=== PATIENT | female | born 1950 | race Caucasian/White ===

== ENCOUNTER → 2024-04-14 | Outpatient (CLI) | payer MEDICARE, SELFPAY ==
[2024-04-14 08:29] LABS: Basophils # (Auto) 0.1 Thou/mm3 (0.0-0.2); Basophils % (Auto) 1 % (0-2.5); Eosinophils # (Auto) 0.3 Thou/mm3 (0.0-0.5); Eosinophils % (Auto) 4 % (0-10); Hematocrit 38.8 % (36.0-46.0); Hemoglobin 12.1 g/dL (12.0-16.0); Immature Granulocytes % (Auto) 0 % (0-0); Immature Granulocytes Auto 0.03 Thou/mm3 (0.00-0.00); Lymphocytes % (Auto) 27 % (10-50); Mean Corpuscular HGB Conc 31.2 g/dl (31.0-37.0); Mean Corpuscular Hemoglobin 28.4 pg (25.0-35.0); Mean Corpuscular Volume 91 fL (80-100); Monocytes # (Auto) 0.6 Thou/mm3 (0.0-0.8); Monocytes % (Auto) 8 % (0-12); Neutrophils # (Auto) 4.4 Thou/mm3 (1.8-7.7); Neutrophils % (Auto) 60 % (37-80); Nucleated Red Blood Cell % 0 /100 WBC (0); Platelet Count 304 Thou/mm3 (140-440); Red Blood Count 4.26 Miln/mm3 (4.00-5.20); White Blood Count 7.4 Thou/mm3 (3.6-11.0)
[2024-04-14 08:39] LABS: Glucose Estimated Average 140 mg/dL (80-131); Hemoglobin A1C 6.5 % Hgb (4.8-6.0)
[2024-04-14 09:02] LABS: Alanine Aminotransferase 17 U/L (10-49); Albumin, Serum 4.6 gm/dL (3.4-4.8); Albumin/Globulin Ratio 1.8 (1.2-2.2); Alkaline Phosphatase 87 U/L (46-116); Anion Gap 6 (7-16); Aspartate Amino Transferase 19 U/L (0-34); BUN/Creatinine Ratio 18 Ratio (12-20); Bilirubin,Total 0.7 mg/dL (0.3-1.2); Blood Urea Nitrogen 21 mg/dL (9-23); Calcium 9.6 mg/dL (8.3-10.6); Calcium (Corrected) 9.6 mg/dL (8.5-10.1); Carbon Dioxide 24.2 mMol/L (20.0-31.0); Chloride 111 mMol/L (98-107); Creatinine (Component) 1.2 mg/dL (0.6-1.3); Globulin 2.5 gm/dL (2.3-3.5); Glucose 153 mg/dL (74-106); Osmolality,Calculated 287 (275-295); Potassium 5.3 mMol/L (3.4-5.1); Sodium 141 mMol/L (136-145); Thyroid Stimulating Hormone 3.35 uIU/mL (0.55-4.78); Total Protein 7.1 gm/dL (5.7-8.2); eGFR 48 See Note
== END | disposition home or self-care (01) ==
PROVIDERS: PCP Specialist; Referring Provider Specialist; Visit Provider Specialist
DX: E11.9 Type 2 diabetes mellitus without complications (principal); R42 Dizziness and giddiness; R60.9 Edema, unspecified
CPT/HCPCS: 36415; 80053; 83036; 84443; 85025

== ENCOUNTER → 2024-10-06 | Outpatient (CLI) | payer MEDICARE, SELFPAY ==
[2024-10-06 09:20] LABS: Alanine Aminotransferase 20 U/L (10-49); Albumin, Serum 4.7 gm/dL (3.4-4.8); Albumin/Globulin Ratio 1.9 (1.2-2.2); Alkaline Phosphatase 79 U/L (46-116); Anion Gap 7 (7-16); Aspartate Amino Transferase 19 U/L (0-34); BUN/Creatinine Ratio 17 Ratio (12-20); Bilirubin,Total 1.1 mg/dL (0.3-1.2); Blood Urea Nitrogen 17 mg/dL (9-23); Calcium 9.5 mg/dL (8.3-10.6); Calcium (Corrected) 9.5 mg/dL (8.5-10.1); Carbon Dioxide 25.8 mMol/L (20.0-31.0); Chloride 105 mMol/L (98-107); Globulin 2.5 gm/dL (2.3-3.5); Glucose 158 mg/dL (74-106); Osmolality,Calculated 280 (275-295); Potassium 4.9 mMol/L (3.4-5.1); Sodium 138 mMol/L (136-145); Total Protein 7.2 gm/dL (5.7-8.2); eGFR 60 See Note
[2024-10-06 09:30] LABS: Glucose Estimated Average 146 mg/dL (80-131); Hemoglobin A1C 6.7 % Hgb (4.8-6.0)
== END | disposition home or self-care (01) ==
LOC: COPL 07:57
PROVIDERS: PCP Specialist; Referring Provider Specialist; Visit Provider Specialist
DX: E11.9 Type 2 diabetes mellitus without complications (principal); R42 Dizziness and giddiness; R60.9 Edema, unspecified
CPT/HCPCS: 36415; 80053; 83036

== ENCOUNTER 2024-11-11 18:45 | Inpatient (IN) | payer MEDICARE, SELFPAY ==
[2024-11-11] VITALS (9 sets, daily range): BP systolic 120–200; BP diastolic 70–108; PULSE 78–93; RESP 17–96; TEMP 36.8–36.9; O2SAT 95–96; BMI 29.8
--- NOTE | 2024-11-11 19:02 | EKG_ITS ---
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
--- NOTE | 2024-11-11 19:33 | XR_ITS ---
Examination: CTA carotids with intravenous contrast CTA brain, head with intravenous contrast. 2-D sagittal, coronal reconstructions. 3-D reconstructions. Exam date and time: November 11, 2024, 194 hours INDICATIONS: Stroke alert, onset focal neurologic deficit beginning 1400 hours today CTDI: vol (mGy) 34.8 DLP: (mGycm) 484 Technique: Multiple CTA axial brain, head carotid images post intravenous contrast injection 75 cc, [id number]. 2-D sagittal, coronal reconstructions. 3-D reconstructions, 3-D post processing including vascular maximum intensity projection images. Low dose protocols were performed. One or more of the following dose reduction techniques were used; automated exposure control, adjustment of the mA and/or KV according to patient size, use of iterative reconstruction technique. Findings: 40-60% stenosis left carotid bifurcation origin left internal carotid artery 80% stenosis right carotid bifurcation origin right internal carotid artery Mildly dominant left vertebral artery with no critical stenoses No cerebral large vessel arterial occlusions, aneurysm clip anterior to the basilar artery IMPRESSION: 40-60% stenosis left carotid bifurcation origin left internal carotid artery 80% stenosis right carotid bifurcation origin right internal carotid artery No cerebral large vessel arterial occlusions or thrombus
--- NOTE | 2024-11-11 19:33 | XR_ITS ---
Examination: CT brain head without contrast. 2-D sagittal coronal reconstructions Date and time of exam:November 11, 2024 1940 hours, comparison October 10, 2023 INDICATIONS: Stroke alert, onset facial numbness and headache dizziness beginning 1400 hours today CTDI: vol (mGy):48.8 DLP: (mGycm):967 Technique: Multiple CT axial sections of the brain have been obtained, 5 mm slice thickness. Contrast has not been administered. 2-D sagittal, coronal reconstructions have been obtained Low dose protocols were performed. One or more of the following dose reduction techniques were used; automated exposure control, adjustment of the mA and/or KV according to patient size, use of iterative reconstruction technique. Findings: No significant ventricular enlargement. Intra-axial or extra-axial hemorrhage density is not seen. No mass effect or midline shift Basal cisterns are not remarkable. Fourth ventricle is midline. Right temporal bone craniotomy defect with aneurysm clip in the anterior right parasellar region, and surgical clips in the temporal fossa is bilaterally Impression: Negative for acute hemorrhage, mass effect or midline shift
--- NOTE | 2024-11-11 19:33 | EDRME_ITS ---
Rapid Medical Screening Exam [facility] Arrival date/time: 11/11/24 18:45 73F with history of DM, HTN, hypothyroidism, and cerebral aneurysm s/p neurosurgery presents to ED with dizziness, blurry vision and facial numbness starting around 1400 today. Patient takes meclizine for chronic dizziness, but has never had the blurry vision and facial numbness. Currently, patient states she only has the blurry vision in R eye. Chief Complaint: Dizziness Vital signs: Vital Signs Temperature 98.5 F 11/11/24 19:04 Pulse Rate 92 11/11/24 19:04 Respiratory Rate 18 11/11/24 19:04 Blood Pressure 153/70 H 11/11/24 19:04 Pulse Oximetry (%) 95 11/11/24 19:04 Oxygen Delivery Method Room Air 11/11/24 19:04
--- NOTE | 2024-11-11 19:39 | PC.NURSE ---
Case Consult 11/11/2024 19:39:24 [facility] Case # [id number] has been created
[2024-11-11 20:00] LABS: Basophils # (Auto) 0.1 Thou/mm3 (0.0-0.2); Basophils % (Auto) 1 % (0-2.5); Eosinophils # (Auto) 0.4 Thou/mm3 (0.0-0.5); Eosinophils % (Auto) 4 % (0-10); Hematocrit 38.2 % (36.0-46.0); Hemoglobin 12.9 g/dL (12.0-16.0); Immature Granulocytes % (Auto) 0 % (0-0); Immature Granulocytes Auto 0.02 Thou/mm3 (0.00-0.00); Lymphocytes % (Auto) 31 % (10-50); Mean Corpuscular HGB Conc 33.8 g/dl (31.0-37.0); Mean Corpuscular Hemoglobin 29.6 pg (25.0-35.0); Mean Corpuscular Volume 88 fL (80-100); Monocytes # (Auto) 0.9 Thou/mm3 (0.0-0.8); Monocytes % (Auto) 10 % (0-12); Neutrophils # (Auto) 5.2 Thou/mm3 (1.8-7.7); Neutrophils % (Auto) 55 % (37-80); Nucleated Red Blood Cell % 0 /100 WBC (0); Platelet Count 271 Thou/mm3 (140-440); RDW Standard Deviation 42.6 fL (36.4-46.3); Red Blood Count 4.36 Miln/mm3 (4.00-5.20); White Blood Count 9.5 Thou/mm3 (3.6-11.0)
[2024-11-11 20:15] LABS: Partial Thromboplastin Time 24.8 Seconds (22.0-36.0); Prothrombin Time 10.5 Seconds (9.0-12.2)
[2024-11-11 20:29] LABS: Alanine Aminotransferase 20 U/L (10-49); Albumin, Serum 4.7 gm/dL (3.4-4.8); Albumin/Globulin Ratio 2.1 (1.2-2.2); Alkaline Phosphatase 98 U/L (46-116); Anion Gap 11 (7-16); Aspartate Amino Transferase 22 U/L (0-34); BUN/Creatinine Ratio 17 Ratio (12-20); Bilirubin,Total 1.1 mg/dL (0.3-1.2); Blood Urea Nitrogen 19 mg/dL (9-23); Calcium 9.9 mg/dL (8.3-10.6); Calcium (Corrected) 9.9 mg/dL (8.5-10.1); Carbon Dioxide 24.2 mMol/L (20.0-31.0); Chloride 104 mMol/L (98-107); Creatinine (Component) 1.1 mg/dL (0.6-1.3); Estimated Creatinine Clearance 50.5 mL/min (>60); Globulin 2.2 gm/dL (2.3-3.5); Glucose 135 mg/dL (74-106); Osmolality,Calculated 281 (275-295); Potassium 4.1 mMol/L (3.4-5.1); Sodium 139 mMol/L (136-145); Total Protein 6.9 gm/dL (5.7-8.2); Troponin I < 0.002 ng/mL (0.0-0.045); eGFR 53 See Note
--- NOTE | 2024-11-11 20:29 | EDNOTE_ITS ---
ED Dizzyness RME/HPI General Chief Complaint: Dizziness Stated Complaint: facial numbness and dizziness Arrival date/time: 11/11/24 18:45 RME / HPI RME / HPI Narrative: 11/11/24 18:45 73F with history of DM, HTN, hypothyroidism, and cerebral aneurysm s/p neurosurgery presents to ED with dizziness, blurry vision and facial numbness starting around 1400 today. Patient takes meclizine for chronic dizziness, but has never had the blurry vision and facial numbness. Currently, patient states she only has the blurry vision in R eye. Dr. Dill?s Main ED Evaluation: 73yo female with a history of DM, HTN, cerebral aneurysm presents to the ED for a chief complaint of facial numbness. Patient states she was driving home from [employer] this afternoon ~1400 when she started having a headache, bilateral facial numbness, and blurry vision. Patient states she was concerned when her symptoms didn't resolve, so she came in for evaluation. Patient denies having any weakness, cough, chest pain, abdominal pain or any otehr associated symptoms. NKA. Related Data Home Medications ?Medication ?Instructions ?Recorded ?Confirmed amlodipine 10 mg tablet 10 mg PO QDAY 04/30/2105/01 atorvastatin 80 mg tablet 80 mg PO QDAY 04/30/2105/01 levothyroxine 25 mcg tablet 25 mcg PO QDAY 04/30/21 lisinopril 10 mg tablet 10 mg PO QDAY 04/30/2105/01 meloxicam 15 mg tablet 15 mg PO QDAY 04/30/2105/01 metformin 500 mg tablet 500 mg PO BID 04/30/2105/01 Allergies Allergy/AdvReac Type Severity Reaction Status Date / Time No Known Allergies Allergy Verified 11/11/24 18:48 Review of Systems Review of Systems Systems Reviewed: All systems reviewed, normal except as documented Past Medical History Past Medical History CARDIAC: Negative Congestive Heart Failure RESPIRATORY: Negative Chronic Obstructive Pulmonary Disease (COPD) GENITOURINARY: Negative Renal Disease REPRODUCTIVE: Positive Endometriosis ENDOCRINE: Negative Diabetes Mellitus Type 1 or Diabetes Mellitus Type 2 OTHER HISTORY: Positive Anesthesia Reactions Surgical History SURGICAL: Positive Abdominal Surgery Social History SMOKING STATUS: Never smoker ED Exam Narrative Physical exam: GENERAL APPEARANCE: alert and oriented x 4, well-developed, well-nourished, no acute distress VITALS: All vitals were reviewed and the pulse ox is 95% on room air, which is normal according to my interpretation. HEENT: Normocephalic, atraumatic; pupils equal, round, reactive to light; EOMI; mucous membranes pink, moist; oropharynx clear NECK: Supple LUNGS: CTABL; no wheezes, no rales, no rhonchi HEART: Regular rate, regular rhythm; normal S1, S2; no murmurs ABDOMEN: non distended; normal BS; soft, no tenderness, no guarding, no rebound; no masses, no organomegaly, no hernia BACK: no CVA tenderness EXTREMITIES: atraumatic; no edema NEUROLOGIC: awake; alert and oriented x4; mildly decreased sensations on the left face, left arm, and left leg; no intention tremor, steccato speech, dysmetria or dysdiadochokinesia PSYCHIATRIC: appropriate mood and affect SKIN: warm, dry, normal color; no rashes Course Course Course Narrative: Patient is a 73-year-old female who presented to the emergency department after an episode of blurry vision and whole face numbness. A stroke alert was called and a stroke workup was placed including CT Noncon head as well as CTA head and neck. Patient was evaluated by the teleneurologist and was given a 0 on the NIH stroke scale. She was recommended not to receive TNK. A workup was performed which revealed a mild, minimally symptomatic UTI. A gram of Rocephin was ordered. The remainder of her workup was reassuring as are her normal and stable vital signs. However patient will need MRI in the morning as on my exam she expressed mildly decreased sensation to the left lower extremity left upper extremity and left face. I gave her 1 on the NIH stroke scale. I called the resident for Dr. Laws and patient to be admitted. Quality Measures none Orders Category Date Time Status Admit to Inpatient Status Routine Admission 11/11/24 21:55 Active Patient Condition Routine Admission 11/11/24 21:55 Ordered Bedside Blood Glucose ACHS Care 11/11/24 21:58 Active Blood glucose [Bedside Blood Glucose] NOW Care 11/11/24 19:02 Active Personal Computer Network Analyst NOW Care 11/11/24 19:33 Active Continuous Pulse Oximetry NOW Care 11/11/24 19:33 Completed EKG (ED ONLY) *Do not use* NOW Care 11/11/24 19:02 Completed In and Out Catheter NEEDED Care 11/11/24 19:33 Active Insert IV NOW Care 11/11/24 19:33 Active Miscellaneous Nursing Order NOW Care 11/11/24 22:09 Active NIH Stroke Scale now Care 11/11/24 19:33 Active NPO NOW Care 11/11/24 19:33 Active Nurse Swallow Screen x1 Care 11/11/24 19:33 Active Obtain weight DAILY Care 11/11/24 21:56 Active Vital Signs, Non-Routine Q2H Care 11/11/24 22:00 Ordered Consult to Neurology / Tele-Neurology Routine Cons 11/11/24 19:33 Active Diet Carbohydrate Consistent Low Diet 11/12/[address] angio stroke protocol Stat Exams 11/11/24 19:[address] stroke protocol Stat Exams 11/11/24 19:33 Completed EKG (ED Only) Stat Exams 11/11/24 19:02 Draft CBC AM DRAW Lab 11/12/24 05:00 Ordered CBC AM DRAW Lab 11/13/24 05:00 Ordered CBC AM DRAW Lab 11/14/24 05:00 Ordered CBC Stat Lab 11/11/24 19:42 Completed Comprehensive Metabolic Panel AM DRAW Lab 11/12/24 05:00 Ordered Comprehensive Metabolic Panel AM DRAW Lab 11/13/24 05:00 Ordered Comprehensive Metabolic Panel AM DRAW Lab 11/14/24 05:00 Ordered Comprehensive Metabolic Panel Stat Lab 11/11/24 19:42 Completed Drug Screen,Urine Stat Lab 11/11/24 21:14 Completed Free T4 (Free Thyroxine) Stat Lab 11/11/24 15:42 Completed Magnesium Stat Lab 11/11/24 19:42 Completed Partial Thromboplastin Time Stat Lab 11/11/24 19:42 Completed Prothrombin Time with INR Stat Lab 11/11/24 19:42 Completed TSH [Thyroid Stimulating Hormone] Stat Lab 11/11/24 15:42 Completed Troponin I Stat Lab 11/11/24 19:42 Completed Urinalysis Stat Lab 11/11/24 21:14 Completed Urine Culture Stat Lab 11/11/24 21:14 Received Acetaminophen Supp [Tylenol Supp] Med 11/11/24 21:53 Active 650 mg NV Q4HR PRN Acetaminophen Tab [Tylenol Tab] Med 11/11/24 21:53 Active 650 mg PO Q4HR PRN Aspirin Med 11/11/24 21:12 Discontinued 325 mg PO X1 ONE Clopidogrel [Plavix] Med 11/11/24 21:12 Discontinued 300 mg PO X1 ONE Dextrose 50% Syr [D50w Syringe Abboject] Med 11/11/24 21:58 Active 25 ml IV Q15MIN PRN Dextrose 50% Syr [D50w Syringe Abboject] Med 11/11/24 21:58 Active 50 ml IV Q15MIN PRN Glucagon Inj Med 11/11/24 21:58 Active 1 mg IM Q15MIN PRN Heparin Inj Med 11/11/24 22:00 Active 5,000 unit SC Q8HR INSULIN LISPRO (AdmeLOG) [HumaLOG] Med 11/12/24 07:30 Active See Protocol SC AC Levothyroxine Sodium [Synthroid] Med 11/12/24 09:00 Ordered 25 mcg PO QDAY Nicardipine/Ns 20Mg Ivpb [Cardene Ivpb] Med 11/11/24 20:35 Active 20 mg in 200 ml IV 5 mg/hr Ondansetron Inj [Zofran Inj] Med 11/11/24 19:33 Active 4 mg IVP Q4HR PRN Senna [Senokot] Med 11/11/24 22:00 Active 1 tab PO QDAY PRN cefTRIAXone/D5w 1gm IV premix [Rocephin/D5w 1gm IV Med 11/11/24 22:18 Ordered premix] 1 gm in 50 ml IV X1 mg Hyd/Al Hyd/Tracie Susp [Maalox Susp] Med 11/11/24 21:53 Active 30 ml PO Q4HR PRN Code Status Routine Oth 11/11/24 21:53 Ordered Oxygen Delivery NOW RT 11/11/24 19:33 Active Oxygen Delivery PRN RT 11/11/24 21:55 Active Vital Signs Vital signs: Vital Signs Temperature 98.5 F 11/11/24 19:04 Pulse Rate 92 11/11/24 19:04 Respiratory Rate 18 11/11/24 19:04 Blood Pressure 153/70 H 11/11/24 19:04 Pulse Oximetry (%) 95 11/11/24 19:04 Oxygen Delivery Method Room Air 11/11/24 19:04 Dizziness MDM Narrative MDM Narrative:: [place] Attestation: 11/11/24 - Alexa Merino, am scribing for and in the presence of Dr. Dill. Stroke alert initiated from the lobby at 1933. Patient was sent to CT. NIHSS 1 with me. 2028: Discussed case with Dr. Painter from teleneurology regarding consultation. Discussed patients ED course, exam findings, labs, and radiology results. Recommends getting the patient's blood pressure down to 180/90. States the patient is having bilateral facial numbness. Does not recommend tPA due to the patient having a NIH score of 0. Recommends admitting for further work-up. 2108: Discussed case with the resident physician, attending Dr. Laws from Hospitalist service regarding admission. Discussed patients ED course, exam findings, labs, and radiology results. The Hospitalist agrees to accept the patient for admission. Patient data External records reviewed:: [facility] previous records (Per chart review, patient was seen here on 04/30/21 for complete obstruction of the small intestine.) Clinical information provided by:: patient Social determinants that could affect healthcare access:: none Patient has the following chronic illnesses:: DM, HTN, cerebral aneurysm How is presenting disease/condition affected by chronic disease/condition?: uneffected by Evaluation data The following diagnostics were reviewed and interpreted by me:: lab results, radiology exam(s) and EKG tracing(s) Lab and/or radiology exams considered but not ordered:: none Interpretation Summary: CBC normal, PT/INR/PTT normal, CMP normal, Troponin normal. EKG done at 1908, NSR, rate of 94, left axis deviation, LAFB, no acute ischemia, according to my interpretation. [facility] Report Signed Patient: YORDY KUMAR. Record#: [id number] Birthdate: 1950 Age/Sex: 73 / F Location: [facility] Attending Dr: Ordering Physician: Zia Kennedy PA-C Date of Service: 11/11/24 Procedure(s): CT stroke protocol Accession Number(s): [id number] cc: IVONNE ASHFORD; Dwaine Vaz MD; Zia Kennedy PA-C~ Examination: CT brain head without contrast. 2-D sagittal coronal reconstructions Date and time of exam:November 11, 2024 1940 hours, comparison October 10, 2023 INDICATIONS: Stroke alert, onset facial numbness and headache dizziness beginning 1400 hours today CTDI: vol (mGy):48.8 DLP: (mGycm):967 Technique: Multiple CT axial sections of the brain have been obtained, 5 mm slice thickness. Contrast has not been administered. 2-D sagittal, coronal reconstructions have been obtained Low dose protocols were performed. One or more of the following dose reduction techniques were used; automated exposure control, adjustment of the mA and/or KV according to patient size, use of iterative reconstruction technique. Findings: No significant ventricular enlargement. Intra-axial or extra-axial hemorrhage density is not seen. No mass effect or midline shift Basal cisterns are not remarkable. Fourth ventricle is midline. Right temporal bone craniotomy defect with aneurysm clip in the anterior right parasellar region, and surgical clips in the temporal fossa is bilaterally Impression: Negative for acute hemorrhage, mass effect or midline shift Dictated By: Dwaine Vaz MD Signed By: <Electronically signed by Dwaine Vaz MD in OV> 11/11/241948 Medications / Prescriptions Medications or Prescriptions considered but not ordered:: none Medication administrations:: Medication Administration History Acetaminophen (Acetaminophen 325 Mg Tablet) 650 mg PO Q4HR PRN PRN Reason: PAIN SCALE 1-3 (mild Stop: 12/11/24 21:52 Acetaminophen (Acetaminophen Supp 650 Mg Supp) 650 mg NV Q4HR PRN PRN Reason: PAIN SCALE 1-3 (mild Stop: 12/11/24 21:52 Al Hydrox/Mg Hydrox/Simethicone (Mg Hyd/Al Hyd/Tracie (Maalox Reg) Susp 30 Ml Udc) 30 ml PO Q4HR PRN PRN Reason: Heartburn or Upset Stomach Stop: 12/11/24 21:52 Dextrose (Dextrose 50%-Water Inj 50 Ml Syringe) 25 ml IV Q15MIN PRN PRN Reason: BG 50-70 responsive npo pt Stop: 12/11/24 21:57 Dextrose (Dextrose 50%-Water Inj 50 Ml Syringe) 50 ml IV Q15MIN PRN PRN Reason: BG <50 OR BG <70 & pt unresponsive Stop: 12/11/24 21:57 Glucagon (Glucagon Inj 1 Mg Vial) 1 mg IM Q15MIN PRN PRN Reason: BG <70, and no IV access Heparin Sodium (Porcine) (Heparin Sod Inj 5000 Unit/Ml Vial) 5,000 unit SC Q8HR IRAIS Stop: 11/25/24 21:59 Nicardipine/Sodium Chloride (Cardene Ivpb) 20 mg in 200 mls @ 50 mls/hr IV .Q4H PRN; Protocol PRN Reason: PER PROTOCOL Stop: 12/11/24 20:34 Last Titration: 11/11/24 21:06 Dose: 3 mg/hr, 30 mls/hr Documented By: Admin: 11/11/24 20:49 Dose: 5 mg/hr, 50 mls/hr Documented By: CG Ceftriaxone Sodium/Dextrose (Rocephin/D5w 1gm Iv Premix) 1 gm in 50 mls @ 100 mls/hr IV X1 ONE Stop: 11/11/24 22:47 Insulin Human Lispro (Insulin Lispro (Admelog) 1 Unit/0.01 Ml Unit) 0 unit SC AC IRAIS; Protocol Stop: 12/12/24 07:29 Levothyroxine Sodium (Levothyroxine Sodium 25 Mcg Tablet) 25 mcg PO QDAY IRAIS Stop: 12/12/24 08:59 Ondansetron HCl (Ondansetron Inj 2 Mg/Ml Inj 2 Ml) 4 mg IVP Q4HR PRN PRN Reason: NAUSEA OR VOMITING Stop: 12/11/24 19:32 Sennosides (Senna Tablet) 1 tab PO QDAY PRN; Protocol PRN Reason: CONSTIPATION Stop: 12/12/24 08:59 Discontinued Medications Aspirin (Aspirin 325 Mg Tablet) 325 mg PO X1 ONE Stop: 11/11/24 21:13 Clopidogrel Bisulfate (Clopidogrel Bisulfate 75 Mg Tablet) 300 mg PO X1 ONE Stop: 11/11/24 21:13 see above Consultations Consultation(s) initiated? (list below): Yes Diagnosis Dizziness Differential Diagnosis: other (hemorrhagic CVA, ischemic CVA, compli cated migraine, subarachnoid bleed) Most likely diagnosis given after review of the tests above:: hypertensive emergency, ischemic CVA Admission Indicated Admission indicated?: indicated Admission Request Was there a request for admission?: Yes Admission Attestation Admission request attestation: Discussed case with [] from Hospitalist service regarding admission. Discussed patients ED course, exam findings, labs, and radiology results. The Hospitalist [agrees,declines] to accept the patient for admission. Disposition Plan Disposition Plan: Admit Critical Care Time Critical Care Time Critical Care Time: Yes Total Critical Care Time (min.): 60 Attestation: The high probability of sudden, clinically significant deterioration in the patient?s condition required the highest level of my preparedness to intervene urgently. The services I provided to this patient were to treat and/or prevent clinically significant deterioration. Services included the following: chart data review, reviewing nursing notes and/or old charts, documentation time, it solutions sales consultant collaboration regarding findings and treatment options, medication orders and management, direct patient care, vital sign assessments and ordering, interpreting and reviewing diagnostic studies and lab tests. Aggregate critical care time includes only time during which I was engaged in work directly related to the patient?s care, as described above, whether at bedside or elsewhere in the Emergency Department. It did not include time spent performing other reported procedures or the services of residents, students, nurses or physician assistants. Discharge Plan Plan Patient Disposition: Admit Acute Care w/in Hospital Prescriptions/Referrals Prescriptions/Med Rec: No Action metformin 500 mg Tablet 500 mg PO BID atorvastatin 80 mg Tablet 80 mg PO QDAY meloxicam 15 mg Tablet 15 mg PO QDAY levothyroxine 25 mcg Tablet 25 mcg PO QDAY amlodipine 10 mg Tablet 10 mg PO QDAY lisinopril 10 mg Tablet 10 mg PO QDAY Referrals: Ivonne Ashford MD [Primary Care Provider] - In 1 week Problem List Clinical Impression: Hypertensive emergency, Ischemic cerebrovascular accident (CVA) Patient/Caregiver Discharge Instructions Print Language: Bulgarian Stand Alone Forms: Trixie Award Info., Patient Portal Info Letter
--- NOTE | 2024-11-11 20:43 | PD.TNEURO ---
Tele Neuro Consultation Consultation Date 11/11/24 Most Recent Vital Signs Last Vital Signs Temp 98.2 F 11/11/24 20:08 Pulse 93 11/11/24 20:08 Resp 18 11/11/24 20:08 BP 200/108 H 11/11/24 20:26 Pulse Ox 95 11/11/24 20:08 O2 Del Method Room Air 11/11/24 20:08 Laboratory-Coagulation Panel PT 10.5 Seconds (9.0-12.2) 11/11/24 19:42 INR 1.0 (0.9-1.3) 11/11/24 19:42 APTT 24.8 Seconds (22.0-36.0) 11/11/24 19:42 Consultation Narrative [facility] Tele[facility] Consult [facility] Date of :???1950 Date of Service:???11/11/2024 19:39:24 Diagnosis:?R51.9 - Headache, unspecified Impression: ?Ms. Bull is a 73 year old with acute onset headache with numbness of bilateral face and a history of migraines that had resolved after her cerebral aneurysm clipping. She is hypertensive today and I recommend lowering her BP to <180/90 and over the next 24 hours targeting normotension. She may continue her aspirin and clopidogrel medications. I suspect she may of had a migraine or hypertensive emergency. My suspicion for stroke is low given lack of focality. I recommend UA, TSH. If lowering her BP does not help then she would likely benefit from a migraine cocktail of Toradol, compazine. If no improvement then consider Depakote 500mg IV. Sign Out: ? Discussed with Emergency Department Provider Advanced Imaging: Advanced imaging has been ordered. Results pending. Metrics: Last Known Well: 11/11/2024 07:00:00 Dispatch Time: 11/11/2024 19:39:24 Arrival Time: 11/11/2024 18:46:00 Initial Response Time: 11/11/2024 19:52:00Symptoms: headache, dizziness, facial numbness, nausea. Initial patient interaction: 11/11/2024 20:09:42 NIHSS Assessment Completed: 11/11/2024 20:13:56Patient is not a candidate for Thrombolytic. Thrombolytic Medical Decision: 11/11/2024 20:13:57Patient was not deemed candidate for Thrombolytic because of following reasons: LKW outside 4.[address] Head: I personally reviewed all the CT images that were available to me and it showed: no hemorrhage mass or hydrocephalus, right crani with clip artifact around the basilar top Primary Provider Notified of Diagnostic Impression and Management Plan on: 11/11/2024 20:28:59 History of Present Illness:Patient is a 73 year old Female. Patient was brought by private transportation with symptoms of headache, dizziness, facial numbness, nausea. 73 year old woman with a history of a cerebral aneurysm clipping presents to ED with feeling ill since this morning complaining of dizziness and bilateral facial numbness. She has no weakness complaints, no loss of vision or speech/language deficit complaints. She is feeling better than when she came in. Past Medical History: ?Hypertension ?Diabetes Mellitus ?Hyperlipidemia ?Migraine Headaches Other PMH:? hypothyroid Medications: No Anticoagulant use? Antiplatelet use:?Yes?asa plavix Reviewed EMR for current medications Allergies:? NKDA Social History: Patient Is: Smoking: No Alcohol Use: No Drug Use: No Family History: There is no family history of premature cerebrovascular disease pertinent to this consultation ROS : 14 Points Review of Systems was performed and was negative except mentioned in HPI. Past Surgical History: There Is No Surgical History Contributory To Today?s Visit There Is Surgical History of:? brain aneurysm 1993 Examination: BP(200/110),?Pulse(93),?Blood Glucose(140) 1A: Level of Consciousness - Alert; keenly responsive?+ 0 1B: Ask Month and Age - Both Questions Right?+ 0 1C: Blink Eyes & Squeeze Hands - Performs Both Tasks?+ 0 2: Test Horizontal Extraocular Movements - Normal?+ 0 3: Test Visual Castañeda - No Visual Loss?+ 0 4: Test Facial Palsy (Use Grimace if Obtunded) - Normal symmetry?+ 0 5A: Test Left Arm Motor Drift - No Drift for 10 Seconds?+ 0 5B: Test Right Arm Motor Drift - No Drift for 10 Seconds?+ 0 6A: Test Left Leg Motor Drift - No Drift for 5 Seconds?+ 0 6B: Test Right Leg Motor Drift - No Drift for 5 Seconds?+ 0 7: Test Limb Ataxia (FNF/Heel-Koch) - No Ataxia?+ 0 8: Test Sensation - Normal; No sensory loss?+ 0 9: Test Language/Aphasia - Normal; No aphasia?+ 0 10: Test Dysarthria - Normal?+ 0 11: Test Extinction/Inattention - No abnormality?+ 0 NIHSS Score:?0 Pre-Morbid Modified Weakley Scale:0 Points = No symptoms at all Spoke with :?Dr Dill This consult was conducted in real time using interactive audio and video technology. Patient was informed of the technology being used for this visit and agreed to proceed. Patient located in hospital and provider located at home/office setting. Patient is being evaluated for possible acute neurologic impairment and high probability of imminent or life-threatening deterioration. I spent total of 45 minutes providing care to this patient, including time for face to face visit via telemedicine, review of medical records, imaging studies and discussion of findings with providers, the patient and/or family. Dr Porfirio Painter [facility] For Inpatient follow-up with [facility] physician please call [facility] at . As we are not an outpatient service for any post hospital discharge needs please contact the hospital for assistance. If you have any questions for the [facility] physicians or need to reconsult for clinical or diagnostic changes please contact us via [facility] at .
[2024-11-11] MEDS: NICARDIPINE/NS 20MG IVPB 20 MG/200 ML BAG 50 MG IV (20:49)
[2024-11-11 21:19] LABS: Collection Type, Urine Catheter; RBC,Urine 0 /hpf (0-3)
[2024-11-11 21:34] LABS: Free T4 (Free Thyroxine) 1.17 ng/dL (0.89-1.76); Thyroid Stimulating Hormone 4.51 uIU/mL (0.55-4.78)
[2024-11-11 21:47] LABS: Amphetamine/Methamp Scrn,U Negative (Negative); Bacteria,Urine Rare; Barbiturate Screen,Urine Negative (Negative); Benzodiazepines Screen,Urine Negative (Negative); Benzoylecgonine Screen, Ur Negative (Negative); Bilirubin,Urine Negative (Negative); Blood,Urine Negative (Negative); Clarity,Urine Clear (Clear/Hazy); Color,Urine Colorless (Lt Yel-Yel); Fentanyl Screen,Urine Negative (Negative); Glucose, Urine Negative (Negative); Ketones,Urine Negative (Negative); Leukocyte Esterase,Urine Positive (Negative); Nitrite,Urine Negative (Negative); Opiate Screen,Urine Negative (Negative); PH,Urine 6.5 (5.0-7.0); Protein,Urine Negative (Neg - Trace); Specific Gravity,Urine 1.025 (1.001-1.035); Squamous Epithelial Cell,Urine < 1 /hpf (0-5); THC Screen,Urine Negative (Negative); Urobilinogen,Urine Negative mg/dL (0.0-1.0); WBC,Urine 6 /hpf (0-5)
--- NOTE | 2024-11-11 22:30 | PD.RESHP ---
Documentation for date of: 11/11/24 [facility] History of Present Illness History of present illness: Patient is a 73-year-old female with history of type 2 diabetes mellitus, hypertension, arthritis, hypothyroidism, and cerebral aneurysm s/p neurosurgery who presented to the ED on 11/11/2024 with concerns of headache, blurry vision, and bilateral facial numbness. Patient states that around 1400 this afternoon while driving in [place], patient began to experience headache mostly focused on the occipital region as well as facial numbness across both sides of her face. She also began to experience generalized blurring vision without any dark spots in her visual field. As symptoms did not resolve, patient decided to come to the ED. She denies any prior episodes, although she does have occasional headaches with neck pain she attributes to her surgical history. Patient also endorses feeling dizziness when her symptoms began. At time of examination in the ED, patient's symptoms have completely resolved, patient states she is at her baseline. Patient denies any chest pains, fever, coughs, abdominal pain, numbness or tingling, weakness, blurry vision, headaches, or fatigue, remainder of ROS unremarkable. Ed course: Upon arrival to ED, patient's blood pressure was 153/76 however was noted to increase to 200/108. Teleneurology was consulted, NIHSS score of 0 and low suspicion for acute stroke, advised blood pressure control with goal of <180/90. Patient was started on nicardipine drip, will be admitted to the ICU with goal of weaning off nicardipine drip as tolerated. Significant labs: Estimated creatinine clearance 50.5, EGFR 53, glucose 135 UA: Leukocyte Estrase positive, 6 WBC, bacteria rare Imaging: Head/Neck CTA: 40-60% stenosis left carotid bifurcation origin left internal carotid artery. 80% stenosis right carotid bifurcation origin right internal carotid artery. No cerebral large vessel arterial occlusions or thrombus Head CT: Negative for acute hemorrhage, mass effect or midline shift EKG: Sinus rhythm PMH: type 2 diabetes mellitus, hypertension, arthritis, hypothyroidism, and cerebral aneurysm s/p neurosurgery FH: Parkinson disease, DM, MD, CHF, Lung cancer Surgical Hx: hysterectomy, unilateral oophorectomy, lap cholecystectomy, cerebral aneurysm repair, laminectomy Social Hx: Denies alcohol, tobacco, or drug use Travel Hx: No recent travel outside of [place] Review of Systems Review of Systems Narrative Review of Systems: GENERAL: Denies fevers/chills or diaphoresis. HEENT: Denies headache or visual/hearing changes NEURO: Denies unusual weakness or difficulty speaking. CARDIO: Denies chest pain or palpitations. PULM: Denies SOB, coughing, or wheezing. GI: Denies abdominal pain, nausea, vomiting, diarrhea URO: Denies burning/itching/pain/urinary changes. MSK/EXT/SKIN: Denies joint/skeletal/muscle pain Past Medical History Past Medical History Comments PMH COMMENT: PMH: type 2 diabetes mellitus, hypertension, arthritis, hypothyroidism, and cerebral aneurysm s/p neurosurgery FH: Parkinson disease, DM, MD, CHF, Lung cancer Surgical Hx: hysterectomy, unilateral oophorectomy, lap cholecystectomy, cerebral aneurysm repair, laminectomy Social Hx: Denies alcohol, tobacco, or drug use Travel Hx: No recent travel outside of [place] Exam Vital Signs Temp Pulse Resp BP Pulse Ox O2 Del Method 98.2 F 78 18 161/78 H 96 Room Air 11/11/24 20:08 11/11/24 22:11 11/11/24 22:11 11/11/24 21:15 11/11/24 21:15 11/11/24 21:15 Narrative Exam General: AOx3, cooperative, in no acute distress HEENT: Atraumatic/normocephalic, STEVE, neck supple without masses Heart: RRR, S1 and S2 without clicks or murmurs Lungs: Clear on auscultation bilaterally, no difficulty breathing Abdomen: Soft, nontender. Bowel sounds present on all quadrants, no organomegaly Skin: Intact, no cyanosis or edema noted. Peripheral pulses palpable Neuro: Reduced sensation on left lower extremity (patient reports as baseline). No focal neurological deficits noted otherwise Results: Labs 11/11/24 19:42 11/11/24 19:42 Labs: Short CBC 11/11/24 Range/Units 19:42 WBC 9.5 (3.6-11.0) Thou/mm3 Hgb 12.9 (12.0-16.0) g/dL Hct 38.2 (36.0-46.0) % Plt Count 271 (140-440) Thou/mm3 BMP 11/11/24 19:42 Sodium 139 Potassium 4.1 Chloride 104 Carbon Dioxide 24.2 BUN 19 Creatinine 1.1 Glucose 135 H Calcium 9.9 Cardiac Enzymes 11/11/24 Range/Units 19:42 Troponin I < 0.002 (0.0-0.045) ng/mL Liver Function 11/11/24 Range/Units 19:42 Total Bilirubin 1.1 (0.3-1.2) mg/dL AST 22 (0-34) U/L ALT 20 (10-49) U/L Alkaline Phosphatase 98 (46-116) U/L Albumin 4.7 (3.4-4.8) gm/dL Urine 11/11/24 Range/Units 21:14 Urine Color Colorless A (Lt Yel-Yel) Urine Clarity Clear (Clear/Hazy) Urine pH 6.5 (5.0-7.0) Ur Specific [place] 1.025 (1.001-1.035) Urine Protein Negative (Neg - Trace) Urine Glucose (UA) Negative (Negative) Quality Measures Quality Measures VTE prophylaxis (Heparin subcutaneously) Advance care planning discussed with:: patient Medications Home Medications and Allergies Home Medications ?Medication ?Instructions ?Recorded ?Confirmed ?Type amlodipine 10 mg tablet 10 mg PO QDAY 04/30/21 05/01/21 History atorvastatin 80 mg tablet 80 mg PO QDAY 04/30/21 05/01/21 History levothyroxine 25 mcg tablet 25 mcg PO QDAY 04/30/21 05/01/21 History lisinopril 10 mg tablet 10 mg PO QDAY 04/30/21 05/01/21 History meloxicam 15 mg tablet 15 mg PO QDAY 04/30/21 05/01/21 History metformin 500 mg tablet 500 mg PO BID 04/30/21 05/01/21 History Allergies Allergy/AdvReac Type Severity Reaction Status Date / Time No Known Allergies Allergy Verified 11/11/24 18:48 Visit Medications Acetaminophen (Acetaminophen 325 Mg Tablet) 650 mg PO Q4HR PRN PRN Reason: PAIN SCALE 1-3 (mild Stop: 12/11/24 21:52 Acetaminophen (Acetaminophen Supp 650 Mg Supp) 650 mg DE Q4HR PRN PRN Reason: PAIN SCALE 1-3 (mild Stop: 12/11/24 21:52 Al Hydrox/Mg Hydrox/Simethicone (Mg Hyd/Al Hyd/Tracie (Maalox Reg) Susp 30 Ml Udc) 30 ml PO Q4HR PRN PRN Reason: Heartburn or Upset Stomach Stop: 12/11/24 21:52 Atorvastatin Calcium (Atorvastatin Calcium 10 Mg Tablet) 80 mg PO HS IRAIS Stop: 12/12/24 20:59 Dextrose (Dextrose 50%-Water Inj 50 Ml Syringe) 25 ml IV Q15MIN PRN PRN Reason: BG 50-70 responsive npo pt Stop: 12/11/24 21:57 Dextrose (Dextrose 50%-Water Inj 50 Ml Syringe) 50 ml IV Q15MIN PRN PRN Reason: BG <50 OR BG <70 & pt unresponsive Stop: 12/11/24 21:57 Glucagon (Glucagon Inj 1 Mg Vial) 1 mg IM Q15MIN PRN PRN Reason: BG <70, and no IV access Heparin Sodium (Porcine) (Heparin Sod Inj 5000 Unit/Ml Vial) 5,000 unit SC Q8HR IRAIS Stop: 11/25/24 21:59 Nicardipine/Sodium Chloride (Cardene Ivpb) 20 mg in 200 mls @ 50 mls/hr IV .Q4H PRN; Protocol PRN Reason: PER PROTOCOL Stop: 12/11/24 20:34 Last Titration: 11/11/24 21:06 Dose: 3 mg/hr, 30 mls/hr Ceftriaxone Sodium/Dextrose (Rocephin/D5w 1gm Iv Premix) 1 gm in 50 mls @ 100 mls/hr IV X1 ONE Stop: 11/11/24 22:47 Insulin Human Lispro (Insulin Lispro (Admelog) 1 Unit/0.01 Ml Unit) 0 unit SC AC IRAIS; Protocol Stop: 12/12/24 07:29 Levothyroxine Sodium (Levothyroxine Sodium 25 Mcg Tablet) 25 mcg PO ACBR IRAIS Stop: 12/12/24 05:59 Lisinopril (Lisinopril 20 Mg Tablet) 20 mg PO HS IRAIS Stop: 12/11/24 22:24 Ondansetron HCl (Ondansetron Inj 2 Mg/Ml Inj 2 Ml) 4 mg IVP Q4HR PRN PRN Reason: NAUSEA OR VOMITING Stop: 12/11/24 19:32 Sennosides (Senna Tablet) 1 tab PO QDAY PRN; Protocol PRN Reason: CONSTIPATION Stop: 12/12/24 08:59 Discontinued Medications Aspirin (Aspirin 325 Mg Tablet) 325 mg PO X1 ONE Stop: 11/11/24 21:13 Clopidogrel Bisulfate (Clopidogrel Bisulfate 75 Mg Tablet) 300 mg PO X1 ONE Stop: 11/11/24 21:13 Assessment & Plan Plan Patient is a 73-year-old female with history of type 2 diabetes mellitus, hypertension, arthritis, hypothyroidism, and cerebral aneurysm s/p neurosurgery who presented to the ED on 11/11/2024 with concerns of headache, blurry vision, and bilateral facial numbness in setting of hypertension. Patient was started on nicardipine drip and will be admitted to the ICU, will continue weaning nicardipine as tolerated. Neurological ? No active issue, symptoms resolved likely secondary to hypertension Tele-neurology consulted, low suspicion for stroke given NIHSS 0 and lack of focality, symptoms likely secondary to migraine vs hypertensive emergency Cardiovascular #Hypertensive emergency Blood pressure noted to increase to 200/108 in ED. Patient endorses a history of 10mg lisinopril nightly, did not take her dose on day of admission Patient endorsed headache, blurry vision, and bilateral facial numbness in setting of hypertension Plan: ? IV nicardipine started in ED, wean as tolerated ? Goal of blood pressure reduction of 25% in first hours, normalization goal at 24-48 hours ? Plan to increase home lisinopril dose to 20mg lisinopril hs ? If patient remains hypertensive, may consider IV labetalol pushes Respiratory ? No active issue Gastrointestinal ? No active issue Renal ? No active issue Endocrine #History of T2DM Glucose 135 on admission. A1c 6.7 in September 2024 Plan: ? Low carb consistent diet ? Will start insulin sliding scale #History of Hypothyroidism Plan: ? Resume home levothyroxine 25 mcg daily ? Med rec pending Infectious Disease ? No active issue Hematology/Oncology ? No active issue Diet: Low carb consistent diet DVT prophylaxis: Heparin subcutaneously [id number] GI prophylaxis: None Code status: Limited, no intubation per patient Disposition: Admitted to ICU for hypertensive emergency treatment with IV nicardipine, will plan to wean off nicardipine drip as tolerated. Patient case discussed with attending physician Dr. Eusebia Hoover DO PGY-3 Attending Provider Attestation/Addendum Jessica Merino DO, attest that I was physically present for the blue portions of the service and evaluated the patient with the resident and I reviewed and discussed the case with the resident and agree with the resident's findings and plans of care as documented above Patient is a 73-year-old female with past medical history of type 2 diabetes, hypertension, arthritis, hypothyroid, migraines and cerebral aneurysm status post clipping in 1993 who presented to the ED due to headache and facial numbness that began around 2 PM. Patient went to eat [employer] with her houcog-rl-her and upon driving back from [place], patient had a worsening occipital headache that prompted her to come to the ED. She also endorses having some blurry vision with the headache. Patient states that she suffers from migraines and this headache was very different from her usual. She also endorses having some dizziness which has since resolved in the ED. Patient was found to have elevated BP on presentation at 200/108. Patient states that she took her medications this morning, but takes lisinopril 10 mg at night. She has not taken her nighttime medications yet. Teleneuro was called from ED due to concern for possible stroke symptoms due to her history of cerebral aneurysm. However, stroke was less likely as patient has no focal neurological deficits on exam. Suspected that headache is likely due to migraine versus hypertensive emergency. Patient was subsequently placed on a nicardipine drip to slowly lower her blood pressure. Patient will be admitted to the ICU due to nicardipine drip for hypertensive urgency. Will wean off drip at this time and restart home medications. If patient no longer requires nicardipine drip, patient likely can be downgraded in a.m. On exam, patient again has no focal neurological deficits muscle strength is intact 5 out of 5 in all 4 extremities. Known numbness or tingling. Gross sensation is intact in bilateral extremities. Extraocular muscles are intact. Patient endorses improvement of symptoms with palpation of occiput and cervical spine. Suspect possible tension headache. Will uptitrate BP medications as needed.
--- NOTE | 2024-11-11 23:59 | PC.NURSE ---
Report given to floor nurse, Leonard, RN
[2024-11-12] VITALS (23 sets, daily range): BP systolic 93–180; BP diastolic 53–113; PULSE 70–111; RESP 5–96; TEMP 36.7–37.2; O2SAT 94–97
--- NOTE | 2024-11-12 05:04 | EVENTNT_ITS ---
Documentation for date of: 11/12/24 Event Note Event Note: 73-year-old female with history of type 2 diabetes mellitus, hypertension, arthritis, hypothyroidism, and cerebral aneurysm s/p neurosurgery who came into the ED on 11/11/2024 due to headache, blurry vision, and bilateral facial n umbness. Stroke alert was called and teleneurology was consulted. Teleneurology stated that they had low suspicion for stroke at this time and that the patient most likely had a migraine or symptoms were secondary to hypertensive emergency. They recommended to keep SBP below 180/90 and to remain normotensive in the next 24 hours. Patient was placed on nicardipine drip. She was briefly admitted in the ICU until blood pressure was under control after nicardipine drip. NIHSS score was 0. Imaging included head CT which was unremarkable, head/neck CTA showed 40 to 60% stenosis of the left carotid and 80% stenosis of right carotid. EKG showed sinus rhythm. Given the patient did not require nicardipine drip anymore overnight and she did not require to be increase her home medication of lisinopril from 10 mg to 20 mg given that after nicardipine drip was discontinued patient became normotensive in the 130s right afterwards. She was downgraded to the medical floors and will be signed as new patient to a day team. Case discussed with my attending Dr. Eusebia Whitt, PGY1
[2024-11-12 05:39] LABS: Alanine Aminotransferase 18 U/L (10-49); Albumin, Serum 4.2 gm/dL (3.4-4.8); Alkaline Phosphatase 72 U/L (46-116); Anion Gap 13 (7-16); Aspartate Amino Transferase 16 U/L (0-34); BUN/Creatinine Ratio 18 Ratio (12-20); Bilirubin,Total 1.1 mg/dL (0.3-1.2); Blood Urea Nitrogen 18 mg/dL (9-23); Calcium 8.7 mg/dL (8.3-10.6); Calcium (Corrected) 8.7 mg/dL (8.5-10.1); Carbon Dioxide 24.7 mMol/L (20.0-31.0); Chloride 108 mMol/L (98-107); Estimated Creatinine Clearance 55.5 mL/min (>60); Globulin 2.1 gm/dL (2.3-3.5); Glucose 138 mg/dL (74-106); Osmolality,Calculated 294 (275-295); Potassium 4.4 mMol/L (3.4-5.1); Sodium 146 mMol/L (136-145); Total Protein 6.3 gm/dL (5.7-8.2); eGFR 60 See Note
[2024-11-12 06:04] LABS: Basophils # (Auto) 0.1 Thou/mm3 (0.0-0.2); Basophils % (Auto) 1 % (0-2.5); Eosinophils # (Auto) 0.3 Thou/mm3 (0.0-0.5); Eosinophils % (Auto) 4 % (0-10); Hematocrit 37.5 % (36.0-46.0); Hemoglobin 12.4 g/dL (12.0-16.0); Immature Granulocytes % (Auto) 0 % (0-0); Immature Granulocytes Auto 0.03 Thou/mm3 (0.00-0.00); Lymphocytes # (Auto) 1.9 Thou/mm3 (1.0-4.8); Lymphocytes % (Auto) 23 % (10-50); Mean Corpuscular HGB Conc 33.1 g/dl (31.0-37.0); Mean Corpuscular Hemoglobin 29.5 pg (25.0-35.0); Mean Corpuscular Volume 89 fL (80-100); Monocytes # (Auto) 0.9 Thou/mm3 (0.0-0.8); Monocytes % (Auto) 10 % (0-12); Neutrophils # (Auto) 5.2 Thou/mm3 (1.8-7.7); Neutrophils % (Auto) 62 % (37-80); Nucleated Red Blood Cell % 0 /100 WBC (0); Platelet Count 231 Thou/mm3 (140-440); RDW Standard Deviation 43.2 fL (36.4-46.3); Red Blood Count 4.21 Miln/mm3 (4.00-5.20); White Blood Count 8.4 Thou/mm3 (3.6-11.0)
[2024-11-12] MEDS: HEPARIN SOD INJ 5000 UNIT/ML VIAL SC (06:10)
[2024-11-12] MEDS: LEVOTHYROXINE SODIUM 25 MCG TABLET PO (06:10)
[2024-11-12] MEDS: METOPROLOL SUCCINATE XL 25 MG TABCR PO (08:24)
[2024-11-12] MEDS: ASPIRIN EC 81 MG TABEC PO (08:24)
[2024-11-12] MEDS: CLOPIDOGREL BISULFATE 75 MG TABLET PO (08:25)
[2024-11-12] MEDS: LABETALOL INJ 5 MG/ML VIAL 20 ML 10 MG IVP (09:41)
--- NOTE | 2024-11-12 10:13 | ESDS_ITS ---
<Statement entered by Hany Bonds MD - 11/19/24 13:34> I reviewed above note and agree with findings and plans. I have also personally examined the patient with medicine team and went over assessment and plan with medical team including international first officer and resident physician. Planned Discharge Date 11/12/24 DS: Providers Provider Date of admission: 11/11/24 21:55 Primary care physician: Tomas Ashford MD Admitting Provider: Jessica Laws DO Attending Provider on Admission: Hany Bonds MD Consults: 11/11/24 19:33 Consult to Neurology / Tele-Neurology Routine Comment: Consulting Provider: [employer] Attending Provider on DC: Tim Velez MD Discharging Provider: Tim Velez MD DS: Diagnosis Problem List Completed Was Problem List Reviewed/Reconciled?: Yes Hospital Course Hospital Course Hospital course: Roscoe Bull is a 73-year-old female with a past medical history of type 2 diabetes mellitus, hypertension, arthritis, hypothyroidism, and cerebral aneurysm s/p neurosurgery who presented to the ED on 11/11/2024 with concerns of headache, blurry vision, and bilateral facial numbness. Around 1400 in afternoon while driving in [place], she began to experience headache mostly focused on occipital region as well as facial numbness across both sides of her face. She also began to experience generalized blurry vision without any dark spots in her visual field. As symptoms did not resolve, patient decided to come to the ED. Denied any prior episodes, although she does have occasional headaches with neck pain she attributes to her surgical history. Also endorses feeling dizzy when symptoms began. At time of examination in ED, symptoms have completely resolved, stating that she was at her baseline. Initial BP in ED was 153/76 but increased to 200/108. Teleneuro was consulted, NIHSS score of 0 with low suspicion of acute stroke and advised blood pressure control with goal of < 180/90. Overnight, nicardipine drip was stopped and systolic blood pressure was in the 130s and downgraded to medical floors. Following day, systolic blood pressure in 160s-170s so her home lisinopril was increased from 10 to 40 mg and given a one time dose of coreg 3.125 mg. Given that her had returned to her baseline, she was also deemed stable for discharge. She will be sent home with lisinopril 40 mg and Coreg 3.125 mg twice daily and to stop her metoprlolol with close follow-up outpatient with her PCP. Diagnoses during admission: #Hypertensive emergency #History of hypertension #History of type 2 diabetes mellitus #Arthritis #Hypothyroidism #Cerebral aneurysm status post neurosurgery Discharge instructions: ? You've been started on carvedilol 3.125 mg twice daily for your blood pressure ? Your lisinopril was increased to 40 mg daily ? Stop taking metoprolol ? Continue taking all other home medications as prescribed ? Follow-up with PCP within 1-2 weeks of discharge ? If you do not have a PCP, you can follow-up at the [facility] (you can call [phone] to make an appointment) ? If you wish to follow-up with Dr. Velez, schedule appointment on Saturday afternoons ? Return to ED if symptoms worsen or recur ----- Plan discussed with attending physician Dr. Cammie Velez MD PGY-1 Internal Medicine Time Spent with Patient Time attestation: Total time spent providing and/or coordinating discharge services: Time spent: Greater than 30 minutes Exam Vital Signs Temp Pulse Resp BP Pulse Ox O2 Del Method 98.9 F 71 20 152/113 H 96 Room Air 11/12/24 08:20 11/12/24 09:41 11/12/24 08:20 11/12/24 09:41 11/12/24 08:20 11/12/24 08:20 Narrative Exam General: AOx3, cooperative, in no acute distress HEENT: Atraumatic/normocephalic, STEVE, neck supple without masses Heart: RRR, S1 and S2 without clicks or murmurs Lungs: Clear on auscultation bilaterally, no difficulty breathing Abdomen: Soft, nontender. Bowel sounds present on all quadrants, no organomegaly Skin: Intact, no cyanosis or edema noted. Peripheral pulses palpable Neuro: no new focal neurological deficits noted Discharge Plan Plan Patient Disposition: HOME (Self Care) Care Plan Goals: ? You've been started on carvedilol 3.125 mg twice daily for your blood pressure ? Your lisinopril was increased to 40 mg daily ? Stop taking metoprolol ? Continue taking all other home medications as prescribed ? Follow-up with PCP within 1-2 weeks of discharge ? If you do not have a PCP, you can follow-up at the [facility] (you can call [phone] to make an appointment) ? If you wish to follow-up with Dr. Velez, schedule appointment on Saturday afternoons ? Return to ED if symptoms worsen or recur Prescriptions/Referrals Prescriptions/Med Rec: New lisinopril 40 mg tablet 40 mg PO QDAY Qty: 30 0RF carvedilol [Coreg] 3.125 mg tablet 3.125 mg PO BID Qty: 60 0RF Rx Instructions: must administer with a meal/food Continued metformin 500 mg Tablet 500 mg PO BID atorvastatin 80 mg Tablet 80 mg PO QDAY meloxicam 15 mg Tablet 15 mg PO QDAY levothyroxine 25 mcg Tablet 25 mcg PO QDAY clopidogrel 75 mg tablet 15 mg PO DAILY meclizine 25 mg tablet 15 mg PO DAILY Discontinued amlodipine 10 mg Tablet 10 mg PO QDAY lisinopril 10 mg Tablet 10 mg PO QDAY metoprolol succinate 25 mg tablet extended release 24 hr 25 mg PO DAILY Referrals: Tomas Ashford MD [Primary Care Provider] - Patient/Caregiver Discharge Instructions Education Materials: Low-Salt Choices, Hypertension Dc Print Language: Irish Stand Alone Forms: Trixie Award Info., Patient Portal Info Letter Discharge Order Discharge Orders: Discharge (Routine); Ordered 11/12/24 Ordered By: Tim Velez Quality Discharge Quality Measures VTE prophylaxis
[2024-11-12] MEDS: carVEDILOL 3.125 MG TABLET PO (11:15)
--- NOTE | 2024-11-12 11:15 | PD.RESPRO ---
Documentation for date of: 11/12/24 Exam Vital Signs Temp Pulse Resp BP Pulse Ox O2 Del Method 98.9 F 71 20 152/113 H 96 Room Air 11/12/24 08:20 11/12/24 09:41 11/12/24 08:20 11/12/24 09:41 11/12/24 08:20 11/12/24 08:20 Objective Labs 11/12/24 04:35 11/12/24 04:35 Labs: Laboratory Results - last 24 hr 11/11/24 11/11/24 11/11/24 15:42 19:42 21:14 WBC 9.5 RBC 4.36 Hgb 12.9 Hct 38.2 MCV 88 MCH 29.6 MCHC 33.8 RDW Std Deviation 42.6 Plt Count 271 Neut % (Auto) 55 Lymph % (Auto) 31 Merrick % (Auto) 10 Eos % (Auto) 4 Baso % (Auto) 1 Neut # (Auto) 5.2 Lymph # (Auto) 3.0 Merrick # (Auto) 0.9 H Eos # (Auto) 0.4 Baso # (Auto) 0.1 Immature Gran # (Auto) 0.02 H Absolute Nucleated RBC 0.00 Immature Gran % 0 Nucleated RBC % 0 PT 10.5 INR 1.0 APTT 24.8 Sodium 139 Potassium 4.1 Chloride 104 Carbon Dioxide 24.2 Anion Gap 11 BUN 19 Creatinine 1.1 Estim Creat Clear Calc 50.5 L eGFR 53 L BUN/Creatinine Ratio 17 Glucose 135 H Calculated Osmolality 281 Calcium 9.9 Corrected Calcium 9.9 Magnesium 2.0 Total Bilirubin 1.1 AST 22 ALT 20 Alkaline Phosphatase 98 Troponin I < 0.002 Total Protein 6.9 Albumin 4.7 Globulin 2.2 L Albumin/Globulin Ratio 2.1 TSH 4.51 Free T4 1.17 Ur Collection Type Catheter Urine Color Colorless A Urine Clarity Clear Urine pH 6.5 Ur Specific [place] 1.025 Urine Protein Negative Urine Glucose (UA) Negative Urine Ketones Negative Urine Blood Negative Urine Nitrite Negative Urine Bilirubin Negative Urine Urobilinogen (Auto) Negative Ur Leukocyte Esterase Positive Urine RBC 0 Urine WBC 6 H Ur Squamous Epith Cells < 1 Urine Bacteria Rare Urine Opiates Screen Negative Urine Fentanyl Screen Negative Ur Barbiturates Screen Negative U Amphetamin/Meth Scrn Negative U Benzodiazepines Scrn Negative U Cocaine Metab Screen Negative U Marijuana (THC) Screen Negative 11/12/24 04:35 WBC 8.4 RBC 4.21 Hgb 12.4 Hct 37.5 MCV 89 MCH 29.5 MCHC 33.1 RDW Std Deviation 43.2 Plt Count 231 D Neut % (Auto) 62 Lymph % (Auto) 23 Merrick % (Auto) 10 Eos % (Auto) 4 Baso % (Auto) 1 Neut # (Auto) 5.2 Lymph # (Auto) 1.9 Merrick # (Auto) 0.9 H Eos # (Auto) 0.3 Baso # (Auto) 0.1 Immature Gran # (Auto) 0.03 H Absolute Nucleated RBC 0.00 Immature Gran % 0 Nucleated RBC % 0 PT INR APTT Sodium 146 H Potassium 4.4 Chloride 108 H Carbon Dioxide 24.7 Anion Gap 13 BUN 18 Creatinine 1.0 Estim Creat Clear Calc 55.5 L eGFR 60 BUN/Creatinine Ratio 18 Glucose 138 H Calculated Osmolality 294 Calcium 8.7 Corrected Calcium 8.7 Magnesium Total Bilirubin 1.1 AST 16 ALT 18 Alkaline Phosphatase 72 D Troponin I Total Protein 6.3 Albumin 4.2 D Globulin 2.1 L Albumin/Globulin Ratio 2.0 TSH Free T4 Ur Collection Type Urine Color Urine Clarity Urine pH Ur Specific [place] Urine Protein Urine Glucose (UA) Urine Ketones Urine Blood Urine Nitrite Urine Bilirubin Urine Urobilinogen (Auto) Ur Leukocyte Esterase Urine RBC Urine WBC Ur Squamous Epith Cells Urine Bacteria Urine Opiates Screen Urine Fentanyl Screen Ur Barbiturates Screen U Amphetamin/Meth Scrn U Benzodiazepines Scrn U Cocaine Metab Screen U Marijuana (THC) Screen Quality Measures Quality Measures VTE prophylaxis (Heparin subcutaneously) Assessment & Plan Assessment Current Active Medications: Generic Name Dose Route Start Last Admin Trade Name Freq PRN Reason Stop Dose Admin Acetaminophen 650 mg 11/11/24 21:53 Acetaminophen 325 Mg Tablet PO 12/11/24 21:52 Q4HR PRN PAIN SCALE 1-3 (mild Acetaminophen 650 mg 11/11/24 21:53 Acetaminophen Supp 650 Mg Supp TX 12/11/24 21:52 Q4HR PRN PAIN SCALE 1-3 (mild Al Hydrox/Mg Hydrox/Simethicone 30 ml 11/11/24 21:53 Mg Hyd/Al Hyd/Tracie (Maalox Reg) Susp 30 Ml Udc PO 12/11/24 21:52 Q4HR PRN Heartburn or Upset Stomach Aspirin 81 mg 11/12/24 09:00 11/12/24 08:24 Aspirin Ec 81 Mg Tabec PO 12/12/24 08:59 81 mg QDAY IRAIS Administration Atorvastatin Calcium 80 mg 11/12/24 21:00 Atorvastatin Calcium 10 Mg Tablet PO 12/12/24 20:59 HS IRAIS Clopidogrel Bisulfate 75 mg 11/12/24 09:00 11/12/24 08:25 Clopidogrel Bisulfate 75 Mg Tablet PO 12/12/24 08:59 75 mg QDAY IRAIS Administration Dextrose 25 ml 11/11/24 21:58 Dextrose 50%-Water Inj 50 Ml Syringe IV 12/11/24 21:57 Q15MIN PRN BG 50-70 responsive npo pt Dextrose 50 ml 11/11/24 21:58 Dextrose 50%-Water Inj 50 Ml Syringe IV 12/11/24 21:57 Q15MIN PRN BG <50 OR BG <70 & pt unresponsive Glucagon 1 mg 11/11/24 21:58 Glucagon Inj 1 Mg Vial IM Q15MIN PRN BG <70, and no IV access Heparin Sodium (Porcine) 5,000 unit 11/12/24 06:00 11/12/24 06:10 Heparin Sod Inj 5000 Unit/Ml Vial SC 11/26/24 05:59 5,000 unit Q8HR IRAIS Administration Insulin Human Lispro 0 unit 11/12/24 07:30 11/12/24 08:11 Insulin Lispro (Admelog) 1 Unit/0.01 Ml Unit SC 12/12/24 07:29 Not Given AC IRAIS Protocol Levothyroxine Sodium 25 mcg 11/12/24 06:00 11/12/24 06:10 Levothyroxine Sodium 25 Mcg Tablet PO 12/12/24 05:59 25 mcg ACBR IRAIS Administration Lisinopril 20 mg 11/11/24 22:25 11/11/24 23:33 Lisinopril 20 Mg Tablet PO 12/11/24 22:24 Not Given HS IRAIS Ondansetron HCl 4 mg 11/11/24 19:33 Ondansetron Inj 2 Mg/Ml Inj 2 Ml IVP 12/11/24 19:32 Q4HR PRN NAUSEA OR VOMITING Sennosides 1 tab 11/11/24 22:00 Senna Tablet PO 12/12/24 08:59 QDAY PRN CONSTIPATION Protocol
[2024-11-12] MEDS: Lisinopril 20 MG TABLET 40 MG PO (11:17)
--- NOTE | 2024-11-12 11:42 | PC.SS ---
FOOD AND BEVERAGE ORDER CLERK conducted bedside contact with the patient conduct initial assessment and to discuss discharge planning.? Patient confirmed demographic information.? Patient resides at home with spouse, Laura Bull .? Patient does not utilize DME to assist with ambulation.? Patient does not utilize home oxygen.? Patient describes the ability to complete ADL?s independently.? .? Patient identified spouse, Laura Bull; as surrogate medical decision maker.? Patient?s PCP is Dr. Ashford.? Patient does not possess any specialty providers.? Patient does not participate with dialysis.? Patient utilizes [facility] for medication services.? Plan is for the patient to return home at the time of discharge. Spouse will provide transportation on behalf of the patient. ?No further discharge needs identified by the patient.? No further intervention required at this time, social media designer will be available to address any further concerns.? Next of Kin: Laura Valentinblood D/C Plan: Home
== END 2024-11-12 13:00 | disposition home or self-care (01) | DRG 305 ==
LOC: SERX 22:20 → SERHOLD 22:20 → S2SX 23:55
PROVIDERS: Physician Assistant; Student in an Organized Health Care Education/Training Program; Admitting Provider Internal Medicine; Emergency Provider Emergency Medicine; PCP Specialist; Visit Provider Internal Medicine
DX: I16.1 Hypertensive emergency (principal); E11.9 Type 2 diabetes mellitus without complications; I10 Essential (primary) hypertension; E03.9 Hypothyroidism, unspecified; I65.23 Occlusion and stenosis of bilateral carotid arteries; G43.909 Migraine, unspecified, not intractable, without status migrainosus; M19.90 Unspecified osteoarthritis, unspecified site; Z79.890 Hormone replacement therapy; Z79.82 Long term (current) use of aspirin; Z79.899 Other long term (current) drug therapy; Z79.84 Long term (current) use of oral hypoglycemic drugs
CPT/HCPCS: 36415; 70450; 70496; 70498; 80053; 80307; 81001; 83735; 84439; 84443; 84484; 85025; 85610; 85730; 87077; 87081; 87086; 87186; 93005; 99291; A4649; J1644; J2404; J3490; Q9967; A9270; J1920

== ENCOUNTER → 2024-12-29 | Outpatient (CLI) | payer MEDICARE, SELFPAY ==
[2024-12-29 13:58] LABS: Collection Type, Urine Clean Catch
[2024-12-29 14:12] LABS: Basophils # (Auto) 0.1 Thou/mm3 (0.0-0.2); Basophils % (Auto) 1 % (0-2.5); Eosinophils # (Auto) 0.4 Thou/mm3 (0.0-0.5); Eosinophils % (Auto) 4 % (0-10); Hematocrit 39.6 % (36.0-46.0); Hemoglobin 13.0 g/dL (12.0-16.0); Immature Granulocytes Auto 0.04 Thou/mm3 (0.00-0.00); Lymphocytes # (Auto) 2.2 Thou/mm3 (1.0-4.8); Lymphocytes % (Auto) 26 % (10-50); Mean Corpuscular HGB Conc 32.8 g/dl (31.0-37.0); Mean Corpuscular Hemoglobin 29.4 pg (25.0-35.0); Mean Corpuscular Volume 90 fL (80-100); Monocytes # (Auto) 0.7 Thou/mm3 (0.0-0.8); Monocytes % (Auto) 9 % (0-12); Neutrophils # (Auto) 4.8 Thou/mm3 (1.8-7.7); Neutrophils % (Auto) 59 % (37-80); Nucleated Red Blood Cell # 0.00 Thou/mm3 (0.00-0.00); Nucleated Red Blood Cell % 0 /100 WBC (0); Platelet Count 295 Thou/mm3 (140-440); RDW Standard Deviation 43.9 fL (36.4-46.3); Red Blood Count 4.42 Miln/mm3 (4.00-5.20); White Blood Count 8.2 Thou/mm3 (3.6-11.0)
[2024-12-29 14:26] LABS: Alanine Aminotransferase 26 U/L (10-49); Albumin, Serum 4.7 gm/dL (3.4-4.8); Albumin/Globulin Ratio 1.9 (1.2-2.2); Alkaline Phosphatase 77 U/L (46-116); Anion Gap 8 (7-16); Aspartate Amino Transferase 28 U/L (0-34); BUN/Creatinine Ratio 16 Ratio (12-20); Bilirubin,Total 1.2 mg/dL (0.3-1.2); Blood Urea Nitrogen 21 mg/dL (9-23); Calcium 10.0 mg/dL (8.3-10.6); Calcium (Corrected) 10.0 mg/dL (8.5-10.1); Carbon Dioxide 24.6 mMol/L (20.0-31.0); Chloride 107 mMol/L (98-107); Creatinine (Component) 1.3 mg/dL (0.6-1.3); Globulin 2.5 gm/dL (2.3-3.5); Glucose 119 mg/dL (74-106); Osmolality,Calculated 283 (275-295); Potassium 5.1 mMol/L (3.4-5.1); Sodium 140 mMol/L (136-145); Total Protein 7.2 gm/dL (5.7-8.2); eGFR 43 See Note
[2024-12-29 14:28] LABS: Bacteria,Urine 3+; Bilirubin,Urine Negative (Negative); Blood,Urine Negative (Negative); Clarity,Urine Clear (Clear/Hazy); Color,Urine Lt-Yellow (Lt Yel-Yel); Glucose, Urine Negative (Negative); Ketones,Urine Negative (Negative); Leukocyte Esterase,Urine Positive (Negative); Nitrite,Urine Negative (Negative); PH,Urine 5.5 (5.0-7.0); Protein,Urine Negative (Neg - Trace); RBC,Urine 1 /hpf (0-3); Specific Gravity,Urine 1.014 (1.001-1.035); Squamous Epithelial Cell,Urine < 1 /hpf (0-5); Urobilinogen,Urine Negative mg/dL (0.0-1.0); WBC,Urine 4 /hpf (0-5)
== END | disposition home or self-care (01) ==
LOC: COPL 13:26
PROVIDERS: PCP Specialist; Referring Provider Specialist; Visit Provider Specialist
DX: I10 Essential (primary) hypertension (principal); G44.221 Chronic tension-type headache, intractable; R11.0 Nausea; R14.0 Abdominal distension (gaseous)
CPT/HCPCS: 36415; 80053; 81001; 85025; 87077; 87086; 87186

== ENCOUNTER → 2025-01-06 | Outpatient (CLI) | payer MEDICARE, SELFPAY ==
[2025-01-06 08:20] LABS: Basophils # (Auto) 0.1 Thou/mm3 (0.0-0.2); Basophils % (Auto) 1 % (0-2.5); Eosinophils # (Auto) 0.4 Thou/mm3 (0.0-0.5); Eosinophils % (Auto) 5 % (0-10); Hematocrit 42.4 % (36.0-46.0); Hemoglobin 13.2 g/dL (12.0-16.0); Immature Granulocytes Auto 0.03 Thou/mm3 (0.00-0.00); Lymphocytes # (Auto) 2.4 Thou/mm3 (1.0-4.8); Lymphocytes % (Auto) 30 % (10-50); Mean Corpuscular HGB Conc 31.1 g/dl (31.0-37.0); Mean Corpuscular Hemoglobin 29.1 pg (25.0-35.0); Mean Corpuscular Volume 93 fL (80-100); Monocytes # (Auto) 0.7 Thou/mm3 (0.0-0.8); Monocytes % (Auto) 9 % (0-12); Neutrophils # (Auto) 4.4 Thou/mm3 (1.8-7.7); Neutrophils % (Auto) 55 % (37-80); Nucleated Red Blood Cell # 0.00 Thou/mm3 (0.00-0.00); Nucleated Red Blood Cell % 0 /100 WBC (0); Platelet Count 293 Thou/mm3 (140-440); RDW Standard Deviation 46.6 fL (36.4-46.3); Red Blood Count 4.54 Miln/mm3 (4.00-5.20); White Blood Count 8.0 Thou/mm3 (3.6-11.0)
[2025-01-06 08:30] LABS: Glucose Estimated Average 163 mg/dL (80-131); Hemoglobin A1C 7.3 % Hgb (4.8-6.0)
[2025-01-06 08:51] LABS: Alanine Aminotransferase 22 U/L (10-49); Albumin, Serum 4.4 gm/dL (3.4-4.8); Albumin/Globulin Ratio 1.8 (1.2-2.2); Alkaline Phosphatase 96 U/L (46-116); Anion Gap 9 (7-16); Aspartate Amino Transferase 20 U/L (0-34); BUN/Creatinine Ratio 14 Ratio (12-20); Bilirubin,Total 0.9 mg/dL (0.3-1.2); Blood Urea Nitrogen 20 mg/dL (9-23); Calcium 10.0 mg/dL (8.3-10.6); Calcium (Corrected) 10.0 mg/dL (8.5-10.1); Carbon Dioxide 24.4 mMol/L (20.0-31.0); Cardiac Risk Estimate 2.2 RATIO (3.7-5.6); Chloride 109 mMol/L (98-107); Cholesterol 141 mg/dL (132-200); Creatinine (Component) 1.4 mg/dL (0.6-1.3); Globulin 2.5 gm/dL (2.3-3.5); Glucose 176 mg/dL (74-106); HDL Cholesterol 64 mg/dL (40-60); LDL Cholesterol,Calculated 46 mg/dL (0-130); Osmolality,Calculated 289 (275-295); Potassium 5.6 mMol/L (3.4-5.1); Sodium 142 mMol/L (136-145); Thyroid Stimulating Hormone 3.60 uIU/mL (0.55-4.78); Total Protein 6.9 gm/dL (5.7-8.2); Triglycerides 157 mg/dL (30-150); eGFR 40 See Note
[2025-01-06 09:12] LABS: Collection Type, Urine Clean Catch
[2025-01-06 09:45] LABS: Bacteria,Urine 1+; Bilirubin,Urine Negative (Negative); Blood,Urine Negative (Negative); Clarity,Urine Clear (Clear/Hazy); Color,Urine Lt-Yellow (Lt Yel-Yel); Glucose, Urine Negative (Negative); Ketones,Urine Negative (Negative); Leukocyte Esterase,Urine Positive (Negative); Nitrite,Urine Negative (Negative); PH,Urine 5.0 (5.0-7.0); Protein,Urine Negative (Neg - Trace); RBC,Urine 7 /hpf (0-3); Specific Gravity,Urine 1.019 (1.001-1.035); Squamous Epithelial Cell,Urine 2 /hpf (0-5); Urobilinogen,Urine Negative mg/dL (0.0-1.0); WBC,Urine 33 /hpf (0-5)
== END | disposition home or self-care (01) ==
LOC: COPL 07:32
PROVIDERS: PCP Specialist; Referring Provider Specialist; Visit Provider Specialist
DX: E66.01 Morbid (severe) obesity due to excess calories (principal); E78.5 Hyperlipidemia, unspecified
CPT/HCPCS: 36415; 80053; 80061; 81001; 83036; 84443; 85025